=== PATIENT | male | born 2000 | race Caucasian/White ===

== ENCOUNTER 2023-07-10 16:19 | Emergency (ER) | payer BC ==
[~2023-07-10] VITALS: Ht 188 cm; Wt 108.4 kg
[2023-07-10] MEDS ORDERED: TDAP [DIPH/PERTUSSIS/TET] 0.5 ML VIAL IM ONE (18:17)
[2023-07-10] MEDS: TDAP [DIPH/PERTUSSIS/TET] 0.5 ML VIAL IM ONE (18:19)
[2023-07-10] MEDS ORDERED: AMOX-430 PO (18:20)
[2023-07-10 18:30] VITALS: BP 127/70; TEMP 98.3; O2SAT 99
== END 2023-07-10 18:31 | disposition home or self-care (01) ==
LOC: ER 16:24
DX: S61.210A Laceration without foreign body of right index finger without damage to nail, initial encounter (principal); W53.21XA Bitten by squirrel, initial encounter; Y93.89 Activity, other specified; Y92.89 Other specified places as the place of occurrence of the external cause; Y99.8 Other external cause status
CPT/HCPCS: 99283; 90471; 90715; A6403